=== PATIENT | female | born 1960 | race American Indian/Alaskan Native ===

== ENCOUNTER 2018-12-31 06:45 | Emergency (ER) | payer OTHER ==
[2018-12-31 06:52] VITALS: BP 146/93
--- NOTE | 2018-12-31 07:16 | Emergency Department Report ---
ED Dysuria HPI - HPI Chief Complaint: Urogenital-Female Stated Complaint: PAINFUL URINATION/BACK PAIN Time Seen by Provider: 12/31/18 07:10 Duration: 2 Days Location of Discomfort: Other (low back) Severity: Mild Symptoms: Dysuria: Yes, Frequency: Yes, Suprapubic Pain: No, Flank Pain: No, Fever: No, Hematuria: Yes, Abdominal Pain: No, Previous UTI's: Yes (as a teenager) Other History: Low back pain x 1 day. Dysuria/Frequency x 2 days. No fever, abd pain, vomiting ED Review of Systems ROS: Stated complaint: PAINFUL URINATION/BACK PAIN Other details as noted in HPI Comment: All other systems reviewed and negative Genitourinary: as per HPI ED Past Medical Hx - Past Medical History Previous Medical History?: Yes Hx Hypertension: Yes Hx Seizures: Yes - Surgical History Past Surgical History?: No - Social History Smoking Status: Former Smoker Substance Use Type: None - Medications Home Medications: Home Medications Medication Instructions Recorded Confirmed Last Taken Type cephALEXin [Keflex] 500 mg PO Q12HR #14 cap 12/31/18 Unknown Rx Dysuria Exam - Exam General: Vital signs noted. No distress. Alert and acting appropriately. Exam: Yes Moist Mucous Membranes, No CVA Tenderness, No Abdominal Tenderness, No Rigidity or Guarding Exam: Heart RRR. Lungs CTAB ED Course Vital Signs 12/31/18 06:49 Temperature 98.9 F Pulse Rate 76 Respiratory 12 Rate Blood Pressure 146/93 O2 Sat by Pulse 97 Oximetry ED Medical Decision Making - Lab Data Lab Results 12/31/18 Range/Units 06:59 Urine Color Yellow (Yellow) Urine Turbidity Cloudy (Clear) Urine pH 5.0 (5.0-7.0) Ur Specific [place] 1.023 (1.003-1.030) Urine Protein 30 mg/dl (Negative) mg/dL Urine Glucose (UA) Neg (Negative) mg/dL Urine Ketones Neg (Negative) mg/dL Urine Blood Mod (Negative) Urine Nitrite Neg (Negative) Urine Bilirubin Neg (Negative) Urine Urobilinogen < 2.0 (<2.0) mg/dL Ur Leukocyte Esterase Lg (Negative) Urine WBC (Auto) > 182.0 H (0.0-6.0) /HPF Urine RBC (Auto) 19.0 (0.0-6.0) /HPF U Epithel Cells (Auto) 7.0 (0-13.0) /HPF Urine WBC Clumps 1+ /HPF Ur Transition Epith Cell 4 /HPF Urine Mucus Few /HPF - Medical Decision Making UTI sx, confirmed on UA ABX and PCP f/u - Differential Diagnosis UTI, unlikely stone Critical care attestation.: If time is entered above; I have spent that time in minutes in the direct care of this critically ill patient, excluding procedure time. ED Disposition Clinical Impression: Urinary tract infection Qualifiers: Urinary tract infection type: acute cystitis Hematuria presence: with hematuria Qualified Code(s): N30.01 - Acute cystitis with hematuria Disposition: - TO HOME OR SELFCARE Is pt being admited?: No Condition: Good Instructions: Urinary Tract Infection in Women (ED) Prescriptions: cephALEXin [Keflex] 500 mg PO Q12HR #14 cap Referrals: TERELL YAÑEZ MD [Staff Physician] - 3-5 Days Time of Disposition: 07:48
[2018-12-31 07:33] LABS: Bilirubin,Urine NEG (Negative); Blood,Urine MOD (Negative); Color,Urine Yellow (Yellow); Mucus,Urine FEW /HPF; Urobilinogen,Urine < 2.0 mg/dL (<2.0)
[2018-12-31 07:40] LABS: WBC,Urine > 182.0 /HPF (0.0-6.0)
== END 2018-12-31 10:48 | disposition home or self-care (01) ==
LOC: ED 06:45
DX: N39.0 Urinary tract infection, site not specified (principal)
CPT/HCPCS: 81001; 87086